=== PATIENT | female | born 1960 | race Caucasian/White ===

== ENCOUNTER 2018-08-13 22:56 | Emergency (ER) | END 2018-08-14 02:04 | disposition home or self-care (01) ==

== ENCOUNTER 2019-04-17 19:31 | Emergency (ER) | payer MEDICAID ==
[~2019-04-17] VITALS: Ht 162.6 cm; Wt 69.0 kg
[~2019-04-17 19:31] MED LIST: CEPH-443 PO; CIPR500T4 PO; DICY10CA40 PO; HYDR-4011 PO; IBUP-1542 PO; METR500T PO
[2019-04-17 19:42] VITALS: Ht 162.6 cm; Wt 69.0 kg
--- NOTE | 2019-04-17 19:51 | ERD ---
ER Documentation Chief Complaint Chief Complaint AP HPI The patient is a 58-year-old female, presenting to the ER because of bilateral lower ribs pain, upper abdominal pain that began 2 days ago, denies similar symptoms previously, denies fever, chills, neck pain, chest pain, vomiting, dysuria, complains of constipation. She does not smoke nor drink Past medical history: None Past surgical history: 2 ROS All systems reviewed and are negative except as per history of present illness. Medications Home Meds Active Scripts Hydrocodone/Acetaminophen (Mercer 5-325 Tablet) 1 Each Tablet, 1 TAB PO Q6H PRN for PAIN, #7 TAB Prov:SKYLER VOSS MD 04/17/19 Ibuprofen* (Motrin*) 600 Mg Tab, 600 MG PO Q6H PRN for PAIN, #20 TAB Prov:SKYLER VOSS MD 04/17/19 Cephalexin* (Keflex*) 500 Mg Capsule, 500 MG PO QID for 7 Days, CAP Prov:SKYLER VOSS MD 04/17/19 Metronidazole* (Flagyl*) 500 Mg Tablet, 500 MG PO TID for 5 Days, TAB Prov:CJ GUTIERREZ 08/14/18 Ciprofloxacin Hcl* (Ciprofloxacin Hcl*) 500 Mg Tablet, 500 MG PO BID for 5 Days, TAB Prov:CJ GUTIERREZ 08/14/18 Dicyclomine HCl (Dicyclomine HCl) 10 Mg Capsule, 10 MG PO TID PRN for ABDOMINAL CRAMPING, #20 CAP Prov:CJ GUTIERREZ 08/14/18 Allergies Allergies: Coded Allergies: No Known Allergy (Unverified , 08/13/18) PMhx/Soc Hx Alcohol Use: No Hx Substance Use: No Hx Tobacco Use: No Physical Exam Vitals Vital Signs Date Temp Pulse Resp B/P (MAP) Pulse Ox O2 O2 Flow FiO2 Time Delivery Rate 04/17/19 98.5 78 18 105/60 99 Room Air 22:40 (75) 04/17/19 98.5 95 18 106/73 99 Room Air 20:18 (84) 04/17/19 102.4 107 18 129/74 99 19:42 (92) Physical Exam Const: No acute distress. Head: Atraumatic. Eyes: Normal Conjunctiva. ENT: Normal External Ears, Nose and Mouth. Neck: Full range of motion. No meningismus. Resp: Clear to auscultation bilaterally. Cardio: Regular tachycardic Abd: Soft, non distended, normal bowel sounds, mild right upper quadrant tenderness and right CVA tenderness Skin: No petechiae or rashes. Back: No midline or flank tenderness. Ext: No cyanosis, or edema. Neur: Awake and alert. No focal deficit Psych: Normal Mood and Affect. Result Diagram: 04/17/19200704/17/192007 Results 24 hrs Laboratory Tests Test 04/17/19 20:08 White Blood Count 6.8 10^3/ul Red Blood Count 4.29 10^6/ul Hemoglobin 12.4 g/dl Hematocrit 37.0 % Mean Corpuscular Volume 86.2 fl Mean Corpuscular Hemoglobin 28.9 pg Mean Corpuscular Hemoglobin Concent 33.5 g/dl Red Cell Distribution Width 12.8 % Platelet Count 313 10^3/UL Mean Platelet Volume 9.3 fl Immature Granulocytes % 0.300 % Neutrophils % 70.2 % Lymphocytes % 20.8 % Monocytes % 7.5 % Eosinophils % 0.9 % Basophils % 0.3 % Nucleated Red Blood Cells % 0.0 /100WBC Immature Granulocytes # 0.020 10^3/ul Neutrophils # 4.8 10^3/ul Lymphocytes # 1.4 10^3/ul Monocytes # 0.5 10^3/ul Eosinophils # 0.1 10^3/ul Basophils # 0.0 10^3/ul Nucleated Red Blood Cells # 0.0 10^3/ul Prothrombin Time 13.6 Sec Prothrombin Time Ratio 1.1 INR International Normalized Ratio 1.03 Activated Partial Thromboplast Time 33.9 Sec Urine Color YELLOW Urine Clarity SLIGHTLY CLOUDY Urine pH 5.0 Urine Specific [place] 1.012 Urine Ketones NEGATIVE mg/dL Urine Nitrite NEGATIVE mg/dL Urine Bilirubin NEGATIVE mg/dL Urine Urobilinogen NEGATIVE mg/dL Urine Leukocyte Esterase 2+ Amol/ul Urine Microscopic RBC 2 /HPF Urine Microscopic WBC 11 /HPF Urine Squamous Epithelial Cells FEW /HPF Urine Hemoglobin 1+ mg/dL Urine Glucose NEGATIVE mg/dL Urine Total Protein NEGATIVE mg/dl Sodium Level 140 mmol/L Potassium Level 4.2 mmol/L Chloride Level 105 mmol/L Carbon Dioxide Level 23 mmol/L Anion Gap 12 Blood Urea Nitrogen 9 mg/dl Creatinine 0.64 mg/dl Est Glomerular Filtrat Rate mL/min > 60 mL/min Glucose Level 118 mg/dl POC Venous Lactate 1.1 mmol/L Calcium Level 9.4 mg/dl Total Bilirubin 0.8 mg/dl Direct Bilirubin 0.00 mg/dl Indirect Bilirubin 0.8 mg/dl Aspartate Amino Transf (AST/SGOT) 54 IU/L Alanine Aminotransferase (ALT/SGPT) 54 IU/L Alkaline Phosphatase 108 IU/L Troponin I < 0.012 ng/ml Total Protein 8.4 g/dl Albumin 4.5 g/dl Globulin 3.90 g/dl Albumin/Globulin Ratio 1.15 Current Medications Medications Dose Sig/Marcela Start Time Status Last (Trade) Ordered Route PRN Stop Time Admin Dose Reason Admin Sodium 2,070 ml BOLUS OVER 2 04/17/19 DC 04/17/19 Chloride HOURS STAT 19:52 20:38 (NS) IV* 04/17/19 19:53 650 mg ONCE STAT 04/17/19 DC 04/17/19 Acetaminophen PO 19:52 20:37 (Tylenol 04/17/19 19:53 Tab) Ketorolac 30 mg ONCE STAT 04/17/19 DC 04/17/19 Tromethamine IV 19:52 20:38 (Toradol) 04/17/19 19:53 Morphine 2 mg ONCE STAT 04/17/19 DC 04/17/19 Sulfate IV 20:26 20:41 (morphine) 04/17/19 20:28 Ondansetron 4 mg ONCE STAT 04/17/19 DC 04/17/19 HCl (Zofran IV 20:26 20:38 Inj) 04/17/19 20:28 Ceftriaxone 50 ml @ ONCE ONCE 04/17/19 DC 04/17/19 Sodium 100 mls/hr IVPB 21:30 21:58 04/17/19 21:59 Morphine 2 mg ONCE STAT 04/17/19 DC 04/17/19 Sulfate IV 22:38 22:43 (morphine) 04/17/19 22:39 Procedures/MDM [place] [id number] Radiology Main Line: [phone] DIAGNOSTIC IMAGING REPORT Patient: ADOLFO LAZO : 1960 Age: 58 Sex: F MR #: [id number] DOS: 04/17/192128 Ordering MD: SKYLER VOSS MD Location: E/R Room/Bed: PROCEDURE: US Abdomen (right upper quadrant). CLINICAL INDICATION: Right upper quadrant abdomen pain. TECHNIQUE: Multiple real-time longitudinal and transverse images of the right upper quadrant of the abdomen were acquired utilizing a curved array transducer. Images were reviewed on a high-resolution PACS workstation. COMPARISON: CT scan of the abdomen and pelvis done earlier the same day. FINDINGS: The liver is normal in size and normal in echogenicity. There is no focal hepatic lesion. Color Doppler and pulsed Doppler sonography demonstrate normal antegrade flow in the portal vein. The gallbladder contains gallstones. There is no gallbladder wall thickening or fluid around the gallbladder. The bile ducts are normal with the common bile duct measuring 4.0 mm in diameter. The visualized portions of the pancreas are unremarkable with obscuration of the tail of the pancreas. No free fluid is present. The right kidney measures 10.7 cm. There is normal echogenicity of the right kidney. There is no right renal mass, hydronephrosis, or calculus. IMPRESSION: 1. Gallstones in the gallbladder. No evidence of cholecystitis. 2. Otherwise normal right upper quadrant abdomen ultrasound. RPTAT: QQ .Juancho Aburto MD, MD Date Time Electronically viewed and signed by .Juancho Aburto MD, MD on 04/17/2019 21:52 .R/ CC: SKYLER VOSS MD [id number] [place] [id number] Radiology Main Line: [phone] DIAGNOSTIC IMAGING REPORT Patient: ADOLFO LAZO : 1960 Age: 58 Sex: F MR #: [id number] DOS: 04/17/192025 Ordering MD: SKYLER VOSS MD Location: E/R Room/Bed: PROCEDURE: CT abdomen and pelvis without contrast. CLINICAL INDICATION: Abdominal Pain TECHNIQUE: CT scan of the abdomen and pelvis without oral contrast was performed and is reconstructed at 2.5 mm contiguous axial intervals from the dome of the diaphragm to the inferior pubic rami.. The patient was scanned without intravenous contrast. Sagittal and coronal reformatted images were obtained from the axial source images. The calculated radiation dose measures 551 mGy centimeters. The CTDI measures 10.1 mGy. Individualized dose optimization technique was used for the performance of this exam. This included 1. Automated exposure control. 2. Adjustment of the mA and / or kV according to the patient's size. 3. Use of iterative reconstructed technique. DICOM images are available. COMPARISON: CT abdomen pelvis August 14, 2018 FINDINGS: The lung bases are clear of any infiltrate or nodule. No effusion is seen. The liver is of normal size and contour with no mass or ductal dilatation. There is fatty infiltration. No gallstones are seen, however, the gallbladder is distended. The wall is somewhat indistinct and there is stranding of the surrounding fat. Findings are suspicious for cholecystitis. No choledocholi thiasis is seen. No splenic, adrenal or pancreatic abnormalities present. Kidneys are of normal size and contour. No hydronephrosis, calculus or mass Is seen. Ureters are of normal course and caliber with no stone. No bladder mass or stone is present. Uterus and ovaries appear normal. There is no aneurysm. No adenopathy is present. No bowel mass or obstruction is present. The appendix is normal. No phlegmon, ascites or pneumoperitoneum is visualized. The osseous structures are intact. IMPRESSION: Distended gallbladder with indistinct wall and stranding of surrounding fat but no radiodense stones. Question cholecystitis. Correlation with ultrasound is recommended. No evidence of urolithiasis, obstructive uropathy, diverticulitis or appendicitis. .Teddy Novak MD, Date Time Electronically viewed and signed by .Teddy Novak MD, MD on 04/17/2019 21:03 .A/ CC: SKYLER VOSS MD [id number] [place] [id number] Radiology Main Line: [phone] DIAGNOSTIC IMAGING REPORT Patient: ADOLFO LAZO : 1960 Age: 58 Sex: F MR #: [id number] DOS: 04/17/191951 Ordering MD: SKYLER VOSS MD Location: E/R Room/Bed: PROCEDURE: XR Chest AP portable CLINICAL INDICATION: Sepsis TECHNIQUE: An AP portable radiograph of the chest was submitted. COMPARISON: 08/13/2018 FINDINGS: Support Hardware: None Cardiovascular: The cardiovascular silhouette appears unremarkable. Lung Carbajal: The lung carbajal and pleural spaces are clear. Pleural Spaces: No pneumothorax or pleural effusion is identified. Osseous Structures: The osseous structures appear intact. Soft Tissues: Unremarkable IMPRESSION: Stable and unremarkable portable chest without evidence of active cardiopulmonary disease. Physician Rosita Date Time Electronically viewed and signed by Physician Rosita on 04/17/2019 20:25 RH/ CC: SKYLER VOSS MD [id number] EKG: Read by emergency physician Rate/Rhythm: Normal Sinus Rhythm 99 beats/min QRS, ST, T-waves: No ST elevation, no T inversion Impression: Normal EKG MEDICAL MAKING DECISION: The patient is a 58-year-old female, resenting with acute right pyelonephritis, acute biliary colic. She was treated with normal saline 30 mm/kg IV for clinical dehydration, Toradol 30 mg IV, morphine 2 mg IV x2 for pain, Zofran IV for nausea, Tylenol and 650 mg p.o. for fever, Rocephin IV for acute right pyelonephritis with good response. She is stable for outpatient follow-up The differential diagnoses considered include but are not limited to cholelithiasis, cholecystitis, choledocholithiasis, cholangitis, pancreatitis, hepatitis, gastritis, peptic ulcer disease, gastric ulcer, appendicitis, cystitis, diverticulitis, partial small bowel obstruction. Departure Diagnosis: Primary Impression: Pyelonephritis Additional Impression: Biliary colic Condition: Good Comments She was discharged with Keflex, Motrin Mercer She was advised to return in 8 to 10-hour for reevaluation, sooner if any concern She was advised to follow-up with her doctor for referral to see as general surgeon for elective cholecystectomy SKYLER VOSS MD Apr 17, 2019 19:51
[2019-04-17] MEDS ORDERED: KETOROLAC 30 MG INJ IV STA (19:52)
[2019-04-17] MEDS ORDERED: SODIUM CHLORIDE 0.9% 1L BAG IV* STA (19:52)
[2019-04-17] MEDS ORDERED: ACETAMINOPHEN 325 MG TAB PO STA (19:52)
[2019-04-17] MEDS ORDERED: ONDANSETRON 4 MG INJ IV STA (20:26)
[2019-04-17] MEDS ORDERED: morphine 2 MG INJ IV STA ×2 (20:26→22:38)
[2019-04-17] MEDS ORDERED: CEFTRIAXONE 1 GM/50 ML (PMX) 50 ML IVPB ONE (21:30)
[2019-04-17 22:40] VITALS: BP 105/60; PULSE 78; RESP 18
== END 2019-04-17 23:03 | disposition home or self-care (01) ==
LOC: E/R 19:31
DX: N12 Tubulo-interstitial nephritis, not specified as acute or chronic (principal); K80.50 Calculus of bile duct without cholangitis or cholecystitis without obstruction
CPT/HCPCS: 36415; 71045; 74176; 76705; 80053; 81001; 83605; 84484; 85025; 85610; 85730; 87040; 87086; 93005; 96374; 96375; 96376; J1885; J2270; J2405; J7030; Z7502; Z7610; J0696

== ENCOUNTER 2019-04-19 20:22 | Emergency (ER) | payer SELFPAY ==
[~2019-04-19] VITALS: Ht 160 cm; Wt 68.8 kg
[~2019-04-19 20:22] MED LIST changes: -CIPR500T4 PO; -DICY10CA40 PO; -METR500T PO
[2019-04-19 20:39] VITALS: BP 182/76; PULSE 88; RESP 20; Ht 160 cm; Wt 68.8 kg
== END 2019-04-19 22:48 | disposition left against medical advice (07) ==
LOC: E/R 20:22
DX: Z53.21 Procedure and treatment not carried out due to patient leaving prior to being seen by health care provider (principal)